=== PATIENT | male | born 1960 | race Caucasian/White ===

== ENCOUNTER 2020-07-08 10:11 | Inpatient (IN) | payer OTHER ==
[~2020-07-08] VITALS: Ht 167.6 cm; Wt 91.2 kg
[2020-07-08] MEDS ORDERED: DEXA2TAB PO (10:26)
[2020-07-08] MEDS ORDERED: VALS80TA2 PO (10:26)
[2020-07-08] MEDS ORDERED: DOXYCYCLINE (10:26)
--- NOTE | 2020-07-08 10:50 | NUR ---
Patient walked into ER C/O SOB that started this AM that has gotten worse. Patient unable to lay flat without SOB worsening. DEnies CP, ENCARNACION, N/V.
--- NOTE | 2020-07-08 11:00 | NUR ---
Dr Romero cardiology into eval patient.
[2020-07-08 11:45] LABS: BASOPHILS # (AUTO) 0.1 K/uL (0.0-8.0); EOSINOPHILS # (AUTO) 0.2 K/uL (0.0-0.7); EOSINOPHILS % (AUTO) 1.4 % (0.0-7.0); HEMOGLOBIN 14.5 g/dL (12.5-16.3); LYMPHOCYTES # (AUTO) 2.4 K/uL (20.0-40.0); LYMPHOCYTES % (AUTO) 20.3 % (20.5-51.5); MEAN CORPUSCULAR HGB CONC 33 g/dL (32.5-36.3); MEAN CORPUSCULAR VOLUME 91.1 fL (73.0-96.2); MONOCYTES # (AUTO) 1.2 K/uL (2.0-10.0); MONOCYTES % (AUTO) 10.1 % (0.0-11.0); NEUTROPHILS # (AUTO) 7.9 K/uL (1.8-8.9); NEUTROPHILS % (AUTO) 67.2 % (38.5-71.5); PLATELET COUNT (AUTO) 258 K/uL (152-348); RED BLOOD CELL COUNT(AUTO) 4.83 MIL/uL (4.06-5.63); WHITE BLOOD COUNT (AUTO) 11.7 K/uL (3.6-10.2)
[2020-07-08 11:46] LABS: CREATININE 1.1 mg/dL (0.6-1.3); POTASSIUM 3.7 mmol/L (3.5-5.1)
--- NOTE | 2020-07-08 12:00 | NUR ---
US tech into do 2D echo.
[2020-07-08 12:03] LABS: BILIRUBIN,DIRECT 0.2 mg/dL (0.0-0.2); BILIRUBIN,TOTAL 0.7 mg/dL (0.2-1.0); TOTAL PROTEIN, SERUM 6.7 g/dL (6.4-8.2)
[2020-07-08] MEDS ORDERED: PANTOPRAZOLE SODIUM 40 MG TABLET.DR PO ONE ×2 (12:15→12:18)
[2020-07-08] MEDS ORDERED: ASPIRIN 325 MG TABLET PO ONE (12:15)
[2020-07-08] MEDS ORDERED: ASPIRIN 325 MG TABLET ONE (12:18)
[2020-07-08] MEDS: FUROSEMIDE 40 MG/4 ML VIAL IV SCH ×2 (12:26→18:25)
[2020-07-08] MEDS ORDERED: NITROGLYCERIN OINT 1 GM PACKET TP ONE ×2 (12:42→12:45)
[2020-07-08] MEDS ORDERED: LABETALOL HCL 100 MG/20 ML VIAL IV ONE (13:00)
--- NOTE | 2020-07-08 13:05 | NUR ---
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 Waiting for Carey Bull NP.
[2020-07-08] MEDS ORDERED: LABETALOL HCL 100 MG/20 ML VIAL ONE (13:08)
[2020-07-08] MEDS ORDERED: hydrALAZINE HCL 20 MG/1 ML VIAL ONE ×2 (13:12→13:42)
[2020-07-08] MEDS ORDERED: hydrALAZINE HCL 20 MG/1 ML VIAL IV ONE ×2 (13:15→13:45)
--- NOTE | 2020-07-08 13:33 | NUR ---
Dr Tesfaye spoke with Carey Bull NP cyber systems operations specialist from [employer].
[2020-07-08] MEDS ORDERED: HYDROCODONE/APAP 5-325MG TABLET PO PRN (13:45)
[2020-07-08] MEDS ORDERED: MAGNESIUM HYDROXIDE 30 ML LIQUID UDC PO PRN (13:45)
[2020-07-08] MEDS ORDERED: ONDANSETRON 4 MG/2 ML VIAL IV PRN (13:45)
[2020-07-08] MEDS ORDERED: LOSARTAN POTASSIUM 25 MG TABLET PO ONE (13:45)
[2020-07-08] MEDS ORDERED: ACETAMINOPHEN 325 MG TABLET PO PRN (13:45)
--- NOTE | 2020-07-08 14:19 | NUR ---
Removed nitro past on left chest wall. BP 113/65, HR 79 with 96%on RA.
--- NOTE | 2020-07-08 17:30 | NUR ---
Transfered to 3rd floor Tele via wheelchair.
[2020-07-08 17:53] VITALS: BP 149/88
--- NOTE | 2020-07-08 18:00 | NUR ---
Received this 60 yo male from ER per jacquie, with the chief complaint of shortness of breath, diagnosis of Acute CHF, NSTEMI, accelerated HTN. Transferred to bed comfortably. Routine admission care rendered. Placed on Tele SR. Awake, alert, oriented x 4, ambulatory. Saline lock left forearm. With admission orders. Endorsed for further care
--- NOTE | 2020-07-08 19:30 | NUR ---
RECEIVED PT AWAKE, ALERT AND ORIENTEDX4. PT IN NO ACUTE DISTRESS. PT ON ROOM AIR AND IN SINUS RHYTHM. SAFETY AND COMFORT PROVIDED. WILL CONTINUE TO MONITOR.
[2020-07-08 20:31] VITALS: BP 141/72
[2020-07-08 23:47] LABS: *AMPHETAMINE, URINE NEGATIVE (NEGATIVE); *CANNABINOID, URINE NEGATIVE (NEGATIVE); *COCCAINE, URINE NEGATIVE (NEGATIVE); *OPIATE, URINE NEGATIVE (NEGATIVE); *PHENCYCLIDINE SCREEN,URINE NEGATIVE (NEGATIVE)
[2020-07-09 00:12] VITALS: BP 149/81
[2020-07-09 04:42] VITALS: BP 150/71
[2020-07-09] MEDS: PANTOPRAZOLE SODIUM 40 MG TABLET.DR PO SCH (06:07)
--- NOTE | 2020-07-09 06:53 | NUR ---
PT SLEPT INTERMITTENTLY. PT IN NO ACUTE DISTRESS. PRESCRIBED MEDICATION GIVEN AND PT TOLERATED IT WELL. SAFETY AND COMFORT PROVIDED.WILL ENDORSE TO INCOMING NURSE FOR CONTINUITY OF CARE.
[2020-07-09 07:18] LABS: BASOPHILS # (AUTO) 0.1 K/uL (0.0-8.0); BASOPHILS % (AUTO) 0.5 % (0.0-2.0); EOSINOPHILS # (AUTO) 0.1 K/uL (0.0-0.7); EOSINOPHILS % (AUTO) 1.3 % (0.0-7.0); HEMATOCRIT 45.2 % (36.7-47.1); LYMPHOCYTES # (AUTO) 1.6 K/uL (20.0-40.0); MEAN CORPUSCULAR HEMOGLOBIN 30.1 uug (23.8-33.4); MEAN CORPUSCULAR HGB CONC 33 g/dL (32.5-36.3); MEAN CORPUSCULAR VOLUME 90.7 fL (73.0-96.2); MONOCYTES % (AUTO) 10.4 % (0.0-11.0); NEUTROPHILS # (AUTO) 6.9 K/uL (1.8-8.9); NEUTROPHILS % (AUTO) 70.8 % (38.5-71.5); PLATELET COUNT (AUTO) 257 K/uL (152-348); RED BLOOD CELL COUNT(AUTO) 4.98 MIL/uL (4.06-5.63); WHITE BLOOD COUNT (AUTO) 9.7 K/uL (3.6-10.2)
[2020-07-09] MEDS ORDERED: CARVEDILOL 6.25 MG TABLET PO SCH ×2 (08:00→18:00)
[2020-07-09 08:02] LABS: BILIRUBIN,TOTAL 1.3 mg/dL (0.2-1.0); CREATININE 1.2 mg/dL (0.6-1.3); MAGNESIUM 2.3 mg/dL (1.8-2.4); PHOSPHOROUS 4.8 mg/dL (2.5-4.9); POTASSIUM 3.4 mmol/L (3.5-5.1); TOTAL PROTEIN, SERUM 6.6 g/dL (6.4-8.2)
[2020-07-09] MEDS ORDERED: POTASSIUM CHLORIDE 20 MEQ POWDER PACKET PO ONE (08:15)
[2020-07-09] MEDS: ASPIRIN 81 MG TAB.CHEW PO SCH (08:31)
[2020-07-09 08:38] VITALS: BP 159/95
[2020-07-09] MEDS ORDERED: LOSARTAN POTASSIUM 50 MG TABLET PO SCH (09:00)
[2020-07-09] MEDS ORDERED: VALSARTAN 80 MG TABLET PO SCH (09:00)
--- NOTE | 2020-07-09 14:45 | NUR ---
patient came back from callicoon center after chest CTA, no acute distress noted
[2020-07-09 17:21] VITALS: BP_SYST 148; BP_SYST 164; BP_DIAS 70; BP_DIAS 98
[2020-07-09] MEDS: LOSARTAN POTASSIUM 50 MG TABLET PO SCH (17:38)
--- NOTE | 2020-07-09 18:16 | NUR ---
PATIENT IS ALERT, ORIENTED X4, NO SOB, PATIENT DENIED ANY CHEST PAIN, NO ACUTE DISTRESS NOTED
[2020-07-09 20:15] VITALS: BP_SYST 104; BP_SYST 141; BP_DIAS 56; BP_DIAS 83
[2020-07-09] MEDS ORDERED: ATORVASTATIN 40 MG TABLET PO SCH (21:00)
[2020-07-10 00:12] VITALS: BP 157/97
[2020-07-10 04:18] VITALS: BP 155/95
[2020-07-10] MEDS: PANTOPRAZOLE SODIUM 40 MG TABLET.DR PO SCH (06:19)
[2020-07-10] MEDS ORDERED: CARVEDILOL 12.5 MG TABLET PO SCH (08:00)
[2020-07-10] MEDS: ASPIRIN 81 MG TAB.CHEW PO SCH (08:19)
[2020-07-10] MEDS: LOSARTAN POTASSIUM 50 MG TABLET PO SCH (08:19)
[2020-07-10 08:36] LABS: BASOPHILS # (AUTO) 0.1 K/uL (0.0-8.0); BASOPHILS % (AUTO) 0.7 % (0.0-2.0); EOSINOPHILS # (AUTO) 0.1 K/uL (0.0-0.7); EOSINOPHILS % (AUTO) 1.2 % (0.0-7.0); HEMATOCRIT 43.7 % (36.7-47.1); HEMOGLOBIN 14.6 g/dL (12.5-16.3); LYMPHOCYTES # (AUTO) 1.2 K/uL (20.0-40.0); LYMPHOCYTES % (AUTO) 13.3 % (20.5-51.5); MEAN CORPUSCULAR HEMOGLOBIN 30.3 uug (23.8-33.4); MEAN CORPUSCULAR HGB CONC 33 g/dL (32.5-36.3); MONOCYTES # (AUTO) 0.9 K/uL (2.0-10.0); MONOCYTES % (AUTO) 9.7 % (0.0-11.0); NEUTROPHILS # (AUTO) 6.7 K/uL (1.8-8.9); NEUTROPHILS % (AUTO) 75.1 % (38.5-71.5); PLATELET COUNT (AUTO) 270 K/uL (152-348); RED BLOOD CELL COUNT(AUTO) 4.81 MIL/uL (4.06-5.63); WHITE BLOOD COUNT (AUTO) 8.9 K/uL (3.6-10.2)
[2020-07-10 08:59] LABS: BILIRUBIN,TOTAL 1.8 mg/dL (0.2-1.0); CREATININE 1.1 mg/dL (0.6-1.3)
[2020-07-10] MEDS ORDERED: FUROSEMIDE 40 MG TABLET PO SCH (09:00)
[2020-07-10] MEDS ORDERED: SPIRONOLACTONE 25 MG TABLET PO SCH (09:00)
--- NOTE | 2020-07-10 09:39 | NUR ---
RECEIVED PATIENT AWAKE, ALERT AND ORIENTED X4. PT IN NO ACUTE DISTRESS. PT. ON ROOM AIR. WILL CONTINUE TO MONITOR.
[2020-07-10 11:00] VITALS: BP 144/85
[2020-07-10] MEDS ORDERED: ASPI81TA31 PO (11:11)
[2020-07-10] MEDS ORDERED: SPIR25TA PO (11:11)
[2020-07-10] MEDS ORDERED: FURO40TA5 PO (11:11)
[2020-07-10] MEDS ORDERED: CARV12.52 PO (11:11)
[2020-07-10] MEDS ORDERED: LOSA50TA3 PO (11:11)
[2020-07-10] MEDS ORDERED: ATOR40TA PO (11:11)
--- NOTE | 2020-07-10 12:23 | NUR ---
PATIENT DISCHARGED HOME, PICKED UP, ESCORTED AND ASSISTED TO THE CAR SAFELY, PATIENT IS ALERT, ORIENTED X4, NO SOB, RESP EVEN NONLABORED, SKIN WARM AND DRY TO TOUCH, NO DISTRESS NOTED, PATIENT TOLERATED BREAKFAST WELL, VERBALLY RESPONSIVE, PATIENT TEACHING PROVIDED ABOUT MANAGING HYPERTENSION, PATIENT VERBALIZED UNDERSTANDING OF IT, EDUCATION MATERIAL GIVEN, PRESCRIPTION GIVEN TO PATIENT, EDUCATION PROVIDED ON MEDICATIONS PRESCRIBED BY DOCTOR, PATIENT VERBALIZED UNDERSTANDING OF IT, ID BAND AND IV ACCESS REMOVED, BELONGINGS ARE ACCOUNTED AND SIGNED, SENT WITH PATIENT.
== END 2020-07-10 12:20 | disposition home or self-care (01) | DRG 194 ==
LOC: ER 10:11 → TELE 17:19
PROVIDERS: ADMIT Nurse Practitioner Acute Care; ATTEND Nurse Practitioner Acute Care
DX: I11.0 Hypertensive heart disease with heart failure (principal); I50.23 Acute on chronic systolic (congestive) heart failure; I21.A1 Myocardial infarction type 2; I27.20 Pulmonary hypertension, unspecified; E78.5 Hyperlipidemia, unspecified; E87.6 Hypokalemia; D72.829 Elevated white blood cell count, unspecified; Z20.822 Contact with and (suspected) exposure to COVID-19; I42.9 Cardiomyopathy, unspecified; Z87.891 Personal history of nicotine dependence; I10 Essential (primary) hypertension; R79.89 Other specified abnormal findings of blood chemistry; I25.10 Atherosclerotic heart disease of native coronary artery without angina pectoris; J43.9 Emphysema, unspecified
CPT/HCPCS: 36415; 70030-TC; 71045; 83735; 84100; 85025; 93005; 93307; A4663; G0378; J0360; J1940; J3490